=== PATIENT | male | born 1985 | race Caucasian/White ===

== ENCOUNTER 2020-04-16 10:05 | Emergency (ER) | payer OTHER, SELFPAY ==
[2020-04-16 10:16] VITALS: BP 128/79; PULSE 101; RESP 16; TEMP 36.7; O2SAT 97
--- NOTE | 2020-04-16 10:21 | ED.EYEPROB ---
HPI - Eye Problem General Chief complaint: Eye Problems Stated complaint: Eye Problems Time Seen by Provider: 04/16/20 10:21 Source: patient Mode of arrival: ambulatory Limitations: no limitations History of Present Illness HPI Narrative: Dereje Salmeron is a 34 yo male with no PMH who comes to express care for complaints of irritation to L eye that started yesterday. Had contact in eye and was mildly painful. Today eye is watering- painful if tried to put in contact lens Visual acuity is 20/200 without contact and R eye is 20/25 with a contact Related Data Allergies Allergy/AdvReac Type Severity Reaction Status Date / Time No Known Allergies Allergy Verified 04/16/20 10:21 Review of Systems Review of Systems: Narrative: CONSTITUTIONAL: Denies fever, chills, sweats. EYES: Denies visual changes, left redness, discharge. ENT: Denies rhinorrhea, congestion, sore throat, otalgia. CARDIOVASCULAR: Denies chest pain, palpitations, edema. RESPIRATORY: Denies dyspnea, wheezing, cough GASTROINTESTINAL: Denies abdominal pain, nausea, vomiting, diarrhea. GENITOURINARY: Denies dysuria, hematuria, abnormal discharge SKIN: Denies rash or itching. NEUROLOGIC: Denies numbness, or focal weakness. PSYCHIATRIC: Denies anxiety or depression. PMFSH Past Medical History Medical History No acute medical problems Family History Family History Other No acute medical problems Social History Social History (Updated 04/16/20 @ 10:33 by Justine Doshi CNP) Smoking packs per day: 0.5 Smoking cigarettes per day: 10.0 Smoking status: Current every day smoker Alcohol intake: current Comments At time of signature, I agree with nursing past medical, surgical, social and family history. There is no relevant family history pertinent to the presenting complaint. Exam Narrative: Exam Narrative: GENERAL: This is a well-nourished, well-developed patient, in mild distress. HEAD: normocephalic, atraumatic. EYES: PERRL. Sclera clear/white on R, injected on L. Vision is grossly intact. EARS: External ears normal, Hearing grossly intact. NOSE: External nose normal without nasal discharge, nares without redness, no rhinorrhea. THROAT: Mucous membranes moist, NECK: Neck supple, CARDIOVASCULAR: Regular rate and rhythm without murmurs, gallops, or rubs. RESPIRATORY: Clear to auscultation. Breath sounds equal bilaterally. No wheezes, rales, or rhonchi. GASTROINTESTINAL: Abdomen soft, SKIN: warm, intact with no suspicious lesions or rash, good texture and turgor. NEURO: awake, alert, and oriented to person, place and time. There were no obvious focal neurologic abnormalities. Steady gait EXTREMITIES: Normal range of motion. BACK: Nontender without deformity Course Course Emergency Course: Patient came to [facility] with irritated left eye after pain with contact yesterday Started on polymyxin eyedrops given directions on eyedrops, warm compresses, and use of sunglasses, no contacts until eye clears up Vital Signs Vital signs: Vital Signs Temperature 98.1 F 04/16/20 10:16 Pulse Rate 101 H 04/16/20 10:16 Respiratory Rate 16 04/16/20 10:16 Blood Pressure 128/79 04/16/20 10:16 Pulse Oximetry 97 04/16/20 10:16 Temperature 98.1 F 04/16/20 10:22 Pulse Rate 101 H 04/16/20 10:22 Respiratory Rate 16 04/16/20 10:22 Blood Pressure 128/79 04/16/20 10:22 Pulse Oximetry 97 04/16/20 10:22 MDM - Eye Problem Differential Diagnosis Differential diagnosis: Likely corneal abrasion, conjunctivitis and other Discharge Plan Discharge Clinical Impression: Bacterial conjunctivitis Patient Disposition: Home, Self-Care Condition: Stable Instructions: Antibiotic Form, Conjunctivitis (ED) Additional Instructions: Use warm washcloth on eye 3 times a day and use antibiotics and warm washcloth x
[2020-04-16 10:22] VITALS: BP 128/79; PULSE 101; RESP 16; TEMP 36.7; O2SAT 97
== END 2020-04-16 10:46 | disposition home or self-care (01) ==
PROVIDERS: Emergency Provider Nurse Practitioner
DX: H10.9 Unspecified conjunctivitis (principal); F17.210 Nicotine dependence, cigarettes, uncomplicated
CPT/HCPCS: 99213; G0463

== ENCOUNTER 2020-10-31 15:48 | Emergency (ER) | payer OTHER, SELFPAY ==
[2020-10-31 16:00] VITALS: BP 129/79; PULSE 94; RESP 18; TEMP 37.4; O2SAT 100
--- NOTE | 2020-10-31 16:52 | ED.URI ---
HPI - URI/Sore Throat General Chief Complaint: Upper Respiratory Infection Stated Complaint: congestion and cough Time Seen by Provider: 10/31/20 16:53 Source: patient, RN notes reviewed and old records reviewed Mode of arrival: ambulatory Limitations: no limitations History of Present Illness HPI Narrative: 35 year old male presents to [facility] care with complaints of cough and chest congestion with nasal drainage since Tuesday evening.Patient states that his cough is frequent and at times productive of white mucous. Patient denies any body aches, sore throat or any ear pain, admits to some clear nasal drainage and congestion, reports low grade fevers with no chills or sweats. Patient denies any shortness of breath, dizziness,or acute headaches.Denies any known exposure to sick contacts. MD elicited complaint: cough Pertinent past history: other (tobacco abuse) Onset (ago): day(s) (3) Consistency: progressively worsening Description of mucous: clear Able to tolerate fluids by mouth: Yes Exacerbating factors: exertion Associated symptoms: fever (low grade), rhinorrhea, nasal congestion and cough Treatments prior to arrival: ibuprofen and cold medicine Related Data Allergies Allergy/AdvReac Type Severity Reaction Status Date / Time No Known Allergies Allergy Verified 10/31/20 16:51 Review of Systems Review of Systems: Narrative: CONSTITUTIONAL: Low grade fever,denies chills, or sweats. EYES: Denies visual changes, redness, or discharge. ENT: Positive rhinorrhea, congestion,no sore throat, or otalgia. CARDIOVASCULAR: Denies chest pain, palpitations, or edema. RESPIRATORY: Positive cough denies dyspnea. GASTROINTESTINAL: Denies abdominal pain, nausea, vomiting, or diarrhea. GENITOURINARY: Denies dysuria or hematuria. SKIN: Denies rash or itching. MUSCULOSKELETAL: Denies back pain, joint pain, or myalgia. NEUROLOGIC: Denies headache, numbness, or weakness. PSYCHIATRIC: Denies anxiety or depression. All systems reviewed & are unremarkable except as noted in HPI and below PMFSH Past Medical History Medical History (Updated 11/04/20 @ 10:22 by Alejandra Frederick NP) Bronchitis Surgical History Surgical History (Updated 11/04/20 @ 10:14 by Alejandra Frederick NP) No pertinent past surgical history Family History Family History (Updated 11/04/20 @ 10:14 by Alejandra Frederick NP) Other No significant family history Social History Social History (Updated 11/04/20 @ 10:13 by Alejandra Frederick NP) Smoking packs per day: 0.5 Smoking cigarettes per day: 10.0 Years smoked: 20 Smoking pack-years: 10.00 Smoking status: Current every day smoker Alcohol intake: current Alcohol use details: social Substance use: never Living arrangements: with family Gender identity (if verbalized by the patient): Male Comments At time of signature, agree with nursing past medical, surgical, social and family history. There is no relevant family history pertinent to the presenting complaint Exam Narrative: Exam Narrative: GENERAL: Ill-appearing, well-nourished, and in no acute distress. HEAD: Normocephalic, atraumatic. EYES: PERRLA and EOMI. ENT: Nares red with clear rhinorrhea no epistaxis. Mucous membranes moist.TM's normal with good light reflex, throat red with no lesions or exudates,tonsil not enlarged NECK: Supple. no lymphadenopathy CHEST: Clear to auscultation. No respiratory distress.SAO2 100% on room air, frequent cough which is productive at times of clear mucous HEART: Regular rate and rhythm. No murmur heard. Normal peripheral pulses. ABDOMEN: Soft, nontender, nondistended, normal active bowel sounds. EXTREMITIES: Normal range of motion. No edema. SKIN: Warm, dry, no rash. NEURO: No focal deficits. Alert and oriented x3. Course Vital Signs Vital signs: Vital Signs Temperature 37.4 C 10/31/20 16:00 Pulse Rate 94 10/31/20 16:00 Respiratory Rate 18 10/31/20 16:00 Blood Pressure 129/79
[2020-11-01 16:46] LABS: SARS-CoV-2 RNA PCR Negative
== END 2020-10-31 17:30 | disposition home or self-care (01) ==
PROVIDERS: Emergency Provider Registered Nurse
DX: J06.9 Acute upper respiratory infection, unspecified (principal); Z20.822 Contact with and (suspected) exposure to COVID-19; F17.210 Nicotine dependence, cigarettes, uncomplicated
CPT/HCPCS: 87081; 87426; 87804; 87880; 99213; C9803; G0463; U0003; U0005

== ENCOUNTER 2021-08-20 17:26 | Emergency (ER) | payer OTHER, MEDICAID, SELFPAY ==
[2021-08-20 17:34] VITALS: PULSE 89; RESP 16; TEMP 36.7; O2SAT 98
[2021-08-20 17:53] VITALS: BP 140/78
--- NOTE | 2021-08-20 18:10 | ECG_ITS ---
Measurements Intervals [place] Rate: 101 P: AL: 0 QRS: 52 QRSD: 96 T: 68 QT: 340 QTc: 442 Interpretive Statements SINUS RHYTHM FREQUENT ATRIAL TRIPLETS BASELINE ARTIFACT- I, II, AVR, AVL ABNORMAL ECG Electronically Signed On 08-21-2021 8:12:41 CDT by Krish Purvis D.O.
--- NOTE | 2021-08-20 18:14 | ED.GENADULT ---
HPI - General Adult General Chief complaint: Eye Problems Stated complaint: Eye Problem Time Seen by Provider: 08/20/21 18:14 Source: patient Mode of arrival: ambulatory Limitations: no limitations History of Present Illness HPI narrative: 35-year-old male presented for complaint of left eye redness, pain, and drainage, itching the eye was matted shut this morning. He states he gets pinkeye at least once a year because he wears contact lenses. He denies vision changes, dizziness, nausea or vomiting. Denies sick contacts. Related Data Allergies Allergy/AdvReac Type Severity Reaction Status Date / Time No Known Allergies Allergy Verified 10/31/20 16:51 Review of Systems Review of Systems: CONSTITUTIONAL: Denies body aches, fever, chills EYES:Endorses swelling, redness and drainage to left eye, Denies visual changes, photophobia ENT: Denies rhinorrhea, congestion, sore throat, or otalgia. CARDIOVASCULAR: Denies chest pain, palpitations RESPIRATORY: Denies cough or dyspnea. GASTROINTESTINAL: Denies abdominal pain, nausea, vomiting, or diarrhea. SKIN: Denies rash, itching, or wounds. MUSCULOSKELETAL: Denies back pain, joint pain, or myalgia. NEUROLOGIC: Denies headache, numbness, tingling, or weakness. PSYCH: Denies depression or anxiety. All systems reviewed & are unremarkable except as noted in HPI and below PMFSH Past Medical History Medical History (Updated 08/20/21 @ 21:11 by Whitney Gandhi APRN) Bronchitis Surgical History Surgical History No pertinent past surgical history Family History Family History Other No significant family history Social History Social History Smoking packs per day: 0.5 Smoking cigarettes per day: 10.0 Years smoked: 20 Smoking pack-years: 10.00 Smoking status: Current every day smoker Alcohol intake: current Alcohol use details: social Substance use: never Gender identity (if verbalized by the patient): Male Comments At time of signature, I have reviewed and agree with nursing past medical, surgical, social and family history unless otherwise noted. Please see nursing chart for further information. There is no relevant family history pertinent to the presenting complaint Exam Narrative: GENERAL: Well-appearing, well-nourished, and in no acute distress. HEAD: Normocephalic, atraumatic. EYES: left conjunctival injection, no eye lid swelling, mild clear drainage. EOMI. PERRLA. Lid eversion showed no FB ENT: Mucous membranes pink and moist. No rhinorrhea. TMs normal bilaterally. Throat normal. Uvula midline. NECK: Normal AROM. Supple. No lymphadenopathy. CHEST: No respiratory distress. Clear to auscultation. HEART: Irregular rhythm. No murmur appreciated. ABDOMEN: Soft, nontender, nondistended MUSCULOSKELETAL: No bony tenderness. EXTREMITIES: Normal range of motion. SKIN: Warm, dry, no rash. Normal skin turgor. NEURO: No focal deficits. Alert and oriented x3. Steady gait PSYCH: Normal affect. Course Course Emergency Course: Patient is aware of diagnosis. Anticipatory guidance given. Portions of this record may have been created with voice recognition software Level of Care: Express Care Visit Vital Signs Vital signs: Vital Signs Temperature 98.1 F 08/20/21 17:34 Pulse Rate 89 08/20/21 17:34 Respiratory Rate 16 08/20/21 17:34 Pulse Oximetry 98 08/20/21 17:34 Temperature 98.1 F 08/20/21 17:34 Pulse Rate 89 08/20/21 17:34 Respiratory Rate 16 08/20/21 17:34 Blood Pressure 140/78 08/20/21 17:53 Pulse Oximetry 98 08/20/21 17:34 Medical Decision Making [facility] Narrative Medical decision making narrative: Per RN, pt's bp was difficult to obtain, RN heard irregular HR, EKG ordered. 1st EKG reviewed, SR with frequent PACs, concern fo
--- NOTE | 2021-08-20 19:53 | PC.NURSE ---
UPON DISCHARGING PT, HE ASKED FOR A RETURN TO WORK NOTE. I INSTRUCTED PT THAT HE COULDN'T GET ONE IF HE WAS REFUSING TO GO TO ED.PT STATED EVEN FOR THE PINK EYE? I INSTRUCTED PT THAT I WOULD ASK BUT SHE PROBABLY ISN'T GOING TO AND THAT THE ED WOULDN'T PROBABLY RELEASE HIM EITHER WITHOUT SEEING A MORTGAGE LOAN ASSISTANT. I TOLD PT THAT THE PROVIDER WAS IN ANOTHER ROOM AND I WOULD LET HIM KNOW WHAT SHE SAYS WHEN SHE COMES OUT OF THE OTHER ROOM. UPON GOING BACK INTO THE ROOM I INFORMED PT THAT THE PROVIDER SAID SHE WOULD NOT GIVE HIM A RELEASE NOTE. IF HE WAS REFUSING THE TO GO TO ED. PT THEN STATED WELL I DIDN'T COME HERE FOR AN EKG, I CAME HERE FOR PINK EYE. 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
--- NOTE | 2021-08-20 20:37 | PC.NURSE ---
UPON DISCHARGING PT HE ASKED FOR A WORK RELEASE NOTE. I INFORMED PT THAT SHE WOULD NOT GIVE HIM ONE IF HE WAS REFUSING TO GO TO THE ED. PT STATED EVEN FOR THE PINK EYE? I TOLD PT THAT I WOULD ASK AND THAT THE ED PROBABLY WOULDN'T GIVE HIM ONE EITHER UNTIL HE FOLLOWED UP WITH A [employer]VENT PLANT TREATER. I TOLD PT THAT THE PROVIDER WAS IN ANOTHER ROOM AND I WOULD LET HIM KNOW. WHEN I WENT BACK INTO THE ROOM TO LET PT KNOW THAT THE PROVIDER SAID NO BECAUSE HE WAS REFUSING TO GO TO THE ED. PT STATED WELL I JUST WANNA KNOW WHEN I CAN GO BACK TO WORK FOR THE PINK EYE AFTER BEING ON THE ANTIBIOTIC BECAUSE I KNOW IT'S CONTAGIOUS? I TOLD PT THAT IT DEPENDS ON THE SEVERITY OF THE PINK EYE. PT STATED, WELL IS IT 24 HOURS? I REPLIED SIR I'M NOT GOING TO GIVE YOU A NUMBER AND PUT MYSELF AT RISK. PT REPLIED EVEN AFTER I SIGNED THAT PAPER? I CAME HERE FOR PINK EYE NOT AN EKG. 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 PT REPLIED WELL THANKS FOR THE FIND BUT I JUST WANNA KNOW WHEN I CAN GO BACK TO WORK. I INFORMED HIM THAT THE PROVIDER ISN'T GOING TO PUT HERSELF AT RISK IF SOMETHING HAPPENS BECAUSE HE REFUSED TO GO TO THE ED. HE REPLIED, EVEN WITH SIGNING THE PAPER?' I TOLD HIM YES, YOUR IRREGULAR HEARTBEAT IS MUCH MORE SERIOUS THAN MINE. I THEN SHOWED HIM THE NAME OF THE SOLVENT PLANT TREATER ON HIS DISCHARGE PAPERS THAT WE REFERRED HIM TO AND TO CALL FIRST THING IN THE MORNING BECAUSE SOMETIMES IT CAN TAKE AWHILE TO GET IN. PT STATED WELL WHAT FIXES THAT? I TOLD HIM THAT I WAS PUT ON MEDICATION. PT STATED AGAIN, I JUST WANNA KNOW WHEN I CAN GO BACK TO WORK, I GUESS I WILL JUST FIGURE IT OUT AND TELL MY BOSS SOMETHING. PT WAS NOT HAPPY AND WAS IRRITATED WHEN LEAVING BECAUSE HE DID NOT GET A WORK NOTE.
--- NOTE | 2021-08-20 21:21 | PC.NURSE ---
1753- TECH WAS UNABLE TO GET AN AUTOMATIC BLOOD PRESSURE READING AND ASKED ME TO DO A MANUAL BP. I GOT A MANUAL BP BUT IT WAS DIFFICULT TO GET A GOOD READING. I THEN ASKED PT IF HE HAD AN IRREGULAR HEARTBEAT AND HE SAID NO. I THEN LISTENED TO HIM AND I TOLD HIM I THINK YOU DO HAVE ONE. I THEN CAME BACK INTO ROOM AND COMPLETED AN EKG, WHICH READ ATRIAL FIB, ABNORMAL EKG. I IMMEDIATELY NOTIFIED THE PROVIDER.
== END 2021-08-20 18:39 | disposition left against medical advice (07) ==
PROVIDERS: Emergency Provider Nurse Practitioner Family
DX: H10.9 Unspecified conjunctivitis (principal); I49.9 Cardiac arrhythmia, unspecified; F17.210 Nicotine dependence, cigarettes, uncomplicated
CPT/HCPCS: 93005; 99213; G0463

== ENCOUNTER 2022-03-01 17:59 | Emergency (ER) | payer OTHER, MEDICAID, SELFPAY ==
--- NOTE | 2022-03-01 18:02 | ED.URI ---
HPI - URI/Sore Throat General Chief Complaint: Upper Respiratory Infection Stated Complaint: Chest Congestion/Headache Time Seen by Provider: 03/01/22 18:02 Source: patient and RN notes reviewed History of Present Illness HPI Narrative: patient is a 36-year-old male who presents to urgent care with complaints of chest congestion, cough, headache. Patient states his son was diagnosed with influenza a a couple days ago when his symptoms started last Tuesday. Patient denies any recent fevers, nausea or vomiting. States he has been taking DayQuil and NyQuil. No other acute complaints. No acute distress noted. Patient aware of the plan of care. Some parts of this dictation were generated by voice recognition software and may contain typographical and/or grammatical inaccuracies. Related Data Allergies Allergy/AdvReac Type Severity Reaction Status Date / Time No Known Allergies Allergy Verified 03/01/22 18:11 Review of Systems Review of Systems: CONSTITUTIONAL: Denies fever, chills, or sweats. EYES: Denies visual changes, redness, or discharge. ENT: Reports rhinorrhea, nasal congestion CARDIOVASCULAR: Denies chest pain, palpitations, or edema. RESPIRATORY: reports of chest congestion and cough without dyspnea GASTROINTESTINAL: Denies abdominal pain, nausea, vomiting, or diarrhea. GENITOURINARY: Denies dysuria or hematuria. SKIN: Denies rash or itching. MUSCULOSKELETAL: Denies back pain, joint pain, or myalgia. NEUROLOGIC: reports of headache All other systems reviewed are negative, except as documented in HPI. [facility] Past Medical History Medical History (Updated 03/01/22 @ 18:34 by DUNCAN Zee) Bronchitis Surgical History Surgical History No pertinent past surgical history Family History Family History Other No significant family history Social History Social History Smoking packs per day: 0.5 Smoking cigarettes per day: 10.0 Years smoked: 20 Smoking pack-years: 10.00 Smoking status: Current every day smoker Alcohol intake: current Alcohol use details: social Substance use: never Gender identity (if verbalized by the patient): Male Comments At the time of my signature, I reviewed and agree with the nursing past medical, surgical, social, and family history. There is no relevant family history pertinent to the patient complaint. Exam Narrative: GENERAL: This is a well-nourished, well-developed patient. reports of fatigue HEAD: normocephalic, atraumatic. EYES: PERRL. Sclera clear/white. Vision is grossly intact. bilateral clear drainage EARS: External ears normal, auditory canals clear and without drainage, TMs normal without perforation. Hearing grossly intact. NOSE: External nose normal with no obvious nasal discharge, nares without redness, clear rhinorrhea. THROAT: Mucous membranes moist, posterior pharynx clear. mild postnasal drainage NECK: Neck supple, non-tender without lymphadenopathy CARDIOVASCULAR: Regular rate and rhythm without murmurs, gallops, or rubs. RESPIRATORY: reports a dry cough.Clear to auscultation. Breath sounds equal bilaterally. No wheezes, rales, or rhonchi. SKIN: warm, intact with no suspicious lesions or rash, good texture and turgor. NEURO: awake, alert, and oriented to person, place and time. There were no obvious focal neurologic abnormalities. EXTREMITIES: No clubbing, cyanosis, or edema. Course Course Level of Care: Express Care Visit Vital Signs Vital signs: Vital Signs Temperature 97.5 F L 03/01/22 18:04 Pulse Rate 103 H 03/01/22 18:04 Respiratory Rate 18 03/01/22 18:04 Blood Pressure 129/94 H 03/01/22 18:04 Pulse Oximetry 96 03/01/22 18:04 Oxygen Delivery Room Air 03/01/22 18:04 Temperature 97.5 F L 03/01/22 18:04 Pulse Rate 103 H 1
[2022-03-01 18:04] VITALS: BP 129/94; PULSE 103; RESP 18; TEMP 36.4; O2SAT 96
== END 2022-03-01 18:42 | disposition home or self-care (01) ==
PROVIDERS: Emergency Provider Nurse Practitioner Family
DX: J06.9 Acute upper respiratory infection, unspecified (principal); F17.219 Nicotine dependence, cigarettes, with unspecified nicotine-induced disorders
CPT/HCPCS: 87804; 99213; G0463

== ENCOUNTER 2022-03-26 16:42 | Emergency (ER) | payer BC, MEDICAID, SELFPAY ==
[2022-03-26 16:52] VITALS: BP 146/79; PULSE 98; RESP 16; TEMP 36; O2SAT 99
--- NOTE | 2022-03-26 17:04 | ED.EYEPROB ---
HPI - Eye Problem General Chief complaint: Eye Problems Stated complaint: Left eye Time Seen by Provider: 03/26/22 17:25 Source: patient and RN notes reviewed Mode of arrival: ambulatory Limitations: no limitations History of Present Illness HPI Narrative: 36-year-old male presents concern for left eye redness, irritation, itching, lip swelling, drainage. Reports exposure to pinkeye. Reports he wears contact lenses but her monthly lenses, he does not sleep in them. He denies injury to the eye MD chief complaint: eye redness Related Data Allergies Allergy/AdvReac Type Severity Reaction Status Date / Time No Known Allergies Allergy Verified 03/26/22 17:10 Review of Systems Review of Systems: CONSTITUTIONAL: Denies malaise, chills, sweats, or fever. EYES: Denies visual changes. Reports left eye redness, irritation, discharge. ENT: Denies rhinorrhea, congestion, sinus pain, otalgia or sore throat. SKIN: Denies rash or itching. NEUROLOGIC: Denies numbness, weakness, or headache. PSYCHIATRIC: Denies anxiety or depression. All systems reviewed & are unremarkable except as noted in HPI and below PMFSH Past Medical History Medical History (Updated 03/26/22 @ 17:33 by Venice Mckeon NP) Bronchitis Surgical History Surgical History No pertinent past surgical history Family History Family History Other No significant family history Social History Social History Smoking packs per day: 0.5 Smoking cigarettes per day: 10.0 Years smoked: 20 Smoking pack-years: 10.00 Smoking status: Current every day smoker Alcohol intake: current Alcohol use details: social Substance use: never Gender identity (if verbalized by the patient): Male Comments At time of signature, agree with nursing past medical, surgical, social and family history. There is no relevant family history pertinent to the presenting complaint Exam Narrative: GENERAL: Well-appearing, well-nourished, and in no acute distress. HEAD: Normocephalic, atraumatic. EYES: PERRLA, sclera clear, and EOMI. No nystagmus. Left color and conjunctivae injected with green drainage noted. Upper and lower eyelid unremarkable, no periorbital edema noted ENT: Nares clear, turbinates pink, no rhinorrhea or epistaxis. Mucous membranes moist. TM pearly perez with sharp light reflex bilaterally; no tragal tenderness. NECK: Supple. CHEST: No respiratory distress. Speaks in full sentences. HEART: Regular rate and rhythm. SKIN: Warm, dry, no visible rash. NEURO: Alert and oriented x3. PSYCH: Normal mood and affect Course Course Emergency Course: Patient is aware of diagnosis, understands and agrees to treatment plan. Anticipatory guidance given. Patient agrees to follow-up as directed and is aware of reasons to seek care at the emergency department. Portions of this record may have been created with voice recognition software Level of Care: Express Care Visit Vital Signs Vital signs: Vital Signs Temperature 96.8 F L 03/26/22 16:52 Pulse Rate 98 03/26/22 16:52 Respiratory Rate 16 03/26/22 16:52 Blood Pressure 146/79 H 03/26/22 16:52 Pulse Oximetry 99 03/26/22 16:52 Oxygen Delivery Room Air 03/26/22 16:52 Temperature 96.8 F L 03/26/22 16:52 Pulse Rate 98 03/26/22 16:52 Respiratory Rate 16 03/26/22 16:52 Blood Pressure 146/79 H 03/26/22 16:52 Pulse Oximetry 99 03/26/22 16:52 Oxygen Delivery Room Air 03/26/22 16:52 Reviewed. MDM - Eye Problem MDM Narrative Medical decision making narrative: Consideration of the following conditions may be warranted for the presenting problem, they are not final diagnoses: Bacterial conjunctivitis, allergic conjunctivitis, viral conjunctivitis, foreign body, blepharitis, chalazion, hordeolum, corneal abrasion, p
== END 2022-03-26 17:35 | disposition home or self-care (01) ==
PROVIDERS: Emergency Provider Nurse Practitioner
DX: H10.9 Unspecified conjunctivitis (principal); F17.210 Nicotine dependence, cigarettes, uncomplicated
CPT/HCPCS: 99213; G0463

== ENCOUNTER 2022-09-06 13:52 | Emergency (ER) | payer OTHER, MEDICAID, SELFPAY ==
[2022-09-06 13:56] VITALS: BP 161/84; PULSE 58; RESP 20; TEMP 36.7; O2SAT 100
--- NOTE | 2022-09-06 14:00 | ED.DENTAL ---
HPI - Dental/Oral General Chief complaint: Dental/Oral Stated complaint: pain from knot on gum Time Seen by Provider: 09/06/22 14:02 Mode of arrival: ambulatory Limitations: no limitations History of Present Illness HPI Narrative: 36-year-old male presents with concern for right upper dental pain. Reports about a year ago he broke a tooth in that area and it has not caused him any problems until the last couple a days it began to hurt and then he noticed swelling this morning in that area. He denies fever, trouble swallowing. MD Complaint: tooth pain Related Data Allergies Allergy/AdvReac Type Severity Reaction Status Date / Time No Known Allergies Allergy Verified 03/26/22 17:10 Review of Systems Review of Systems: CONSTITUTIONAL: Denies malaise, chills, sweats, or fever. EYES: Denies visual changes ENT: Denies rhinorrhea, congestion, sinus pain, otalgia or sore throat. Reports right upper dental pain CARDIOVASCULAR: Denies chest pain, palpitations RESPIRATORY: Denies cough or dyspnea. SKIN: Denies rash or itching. MUSCULOSKELETAL: Denies myalgia. NEUROLOGIC: Denies numbness, weakness, or headache. All systems reviewed & are unremarkable except as noted in HPI and below PMFSH Past Medical History Medical History (Updated 09/06/22 @ 14:07 by Venice Mckeon NP) Bronchitis Surgical History Surgical History No pertinent past surgical history Family History Family History Other No significant family history Social History Social History Smoking packs per day: 0.5 Smoking cigarettes per day: 10.0 Years smoked: 20 Smoking pack-years: 10.00 Smoking status: Current every day smoker Alcohol intake: current Alcohol use details: social Substance use: never Living arrangements: with family Gender identity (if verbalized by the patient): Male Comments At time of signature, agree with nursing past medical, surgical, social and family history. There is no relevant family history pertinent to the presenting complaint Exam Narrative: GENERAL: Well-appearing, well-nourished, and in no acute distress. HEAD: Normocephalic, atraumatic. EYES: PERRLA, sclera clear ENT: Nares clear, turbinates pink, no rhinorrhea or epistaxis. Mucous membranes moist. TM pearly perez with sharp light reflex bilaterally; no tragal tenderness. Oropharynx without erythema or lesions. Tonsils not enlarged and without exudate. Missing teeth, broken teeth, caries. Erythema edema noted above tooth number 28 NECK: Supple. No lymphadenopathy. CHEST: No respiratory distress. Speaks in full sentences. HEART: Regular rate and rhythm. SKIN: Warm, dry, no visible rash. NEURO: Alert and oriented x3. PSYCH: Normal mood and affect Course Course Emergency Course: Patient is aware of diagnosis, understands and agrees to treatment plan. Anticipatory guidance given. Patient agrees to follow-up as directed and is aware of reasons to seek care at the emergency department. Portions of this record may have been created with voice recognition software Level of Care: Express Care Visit Vital Signs Vital signs: Reviewed. MDM - Dental/Oral MDM Narrative Medical decision making narrative: Patients pain and complaint coupled with physical findings are consistant with dentalgia. There are no focal signs of space occupying lesions that are compromising to the airway; no dysphagia, odynophagia, dysphonia, or dyspnea. No uvular deviation or soft palate edema. Patient is non-toxic appearing. The floor of the mouth is soft with no signs of Mauricio's Angina; no induration below mandible, no neck pain. Patient is without trismus or drooling and able to swallow secretions. Patient is felt appropriate for discharge home with dental follow up. Differential Diagnosis
== END 2022-09-06 14:16 | disposition home or self-care (01) ==
PROVIDERS: Emergency Provider Nurse Practitioner
DX: K04.7 Periapical abscess without sinus (principal); F17.210 Nicotine dependence, cigarettes, uncomplicated
CPT/HCPCS: 99213; G0463

== ENCOUNTER 2023-02-07 16:12 | Emergency (ER) | payer OTHER, MEDICAID, SELFPAY ==
--- NOTE | 2023-02-07 16:24 | ED.URI ---
HPI - URI/Sore Throat General Chief Complaint: Upper Respiratory Infection Stated Complaint: Chest Congestion Source: patient, RN notes reviewed and old records reviewed History of Present Illness HPI Narrative: 37 yo M Presents to urgent care with complaints of nasal congestion, chest congestion, cough, and bilateral ear fullness. Pt states he has had these symptoms intermittently for the last month and has had no relief with OTC cold and flu meds such as Mucinex. Pt noted to have a low heart rate in triage. Pt denies any chest pain, SOB, palpitations, dizziness, or syncope. Pt states last year when he was here for something unrelated, he was told he had an irregular heartbeat which he was seen for and was told it is normal for a smoker to have this irregular heartbeat. Related Data Allergies Allergy/AdvReac Type Severity Reaction Status Date / Time No Known Allergies Allergy Verified 02/07/23 16:24 Review of Systems Review of Systems: Pertinent positives and pertinent negatives per HPI. PMFSH Past Medical History Medical History (Updated 02/07/23 @ 16:39 by Fernanda Reardon APRN) Bronchitis Surgical History Surgical History No pertinent past surgical history Family History Family History Other No significant family history Social History Social History Smoking packs per day: 0.5 Smoking cigarettes per day: 10.0 Years smoked: 20 Smoking pack-years: 10.00 Smoking status: Current every day smoker Alcohol intake: current Alcohol use details: social Substance use: never Living arrangements: with family Gender identity (if verbalized by the patient): Male Comments At the time of my signature, I reviewed and agree with the nursing past medical, surgical, social, and family history. There is no relevant family history pertinent to the patient complaint. Exam Narrative: GENERAL: This is a well-nourished, well-developed patient, in no apparent distress. HEAD: normocephalic, atraumatic. EYES: Sclera clear/white. Vision is grossly intact. EARS: External ears normal, auditory canals clear and without drainage, TMs normal without perforation. Hearing grossly intact. NOSE: External nose normal with no obvious nasal discharge, nares without redness, no rhinorrhea. THROAT: Mucous membranes moist, posterior pharynx clear. NECK: Neck supple, non-tender without lymphadenopathy, masses or thyromegaly. CARDIOVASCULAR: Irregular rhythm and bradycardic RESPIRATORY: Clear to auscultation. Breath sounds equal bilaterally. No wheezes, rales, or rhonchi. SKIN: warm, intact with no suspicious lesions or rash, good texture and turgor. NEURO: awake, alert, and oriented to person, place and time. There were no obvious focal neurologic abnormalities. Course Course Level of Care: Express Care Visit Vital Signs Vital signs: Vital Signs Temperature 98.0 F 02/07/23 16:26 Pulse Rate 49 L 02/07/23 16:26 Respiratory Rate 18 02/07/23 16:26 Blood Pressure 103/60 02/07/23 16:26 Pulse Oximetry 95 02/07/23 16:26 Oxygen Delivery Room Air 02/07/23 16:26 Temperature 98.0 F 02/07/23 16:26 Pulse Rate 49 L 02/07/23 16:26 Respiratory Rate 18 02/07/23 16:26 Blood Pressure 103/60 02/07/23 16:26 Pulse Oximetry 95 02/07/23 16:26 Oxygen Delivery Room Air 02/07/23 16:26 Reviewed MDM - URI/Sore Throat MDM Narrative Medical decision making narrative: Go to the ER for any new or worsening symptoms. Avoid smoking/second-hand smoke. Continue to take Tylenol or Motrin for pain. Increase your Vitamin C intake. Use a humidifier or vaporizer at night. Take Medications as prescribed. Drink plenty of water. 8-10 glasses per day. Use flonase 2 times per day for 5 days then as needed Follow up with Primary pro
[2023-02-07 16:26] VITALS: BP 103/60; PULSE 49; RESP 18; TEMP 36.7; O2SAT 95
== END 2023-02-07 16:46 | disposition left against medical advice (07) ==
PROVIDERS: Emergency Provider Nurse Practitioner Family
DX: J32.9 Chronic sinusitis, unspecified (principal); F17.210 Nicotine dependence, cigarettes, uncomplicated
CPT/HCPCS: 99213; G0463